=== PATIENT | female | born 1955 | race Caucasian/White ===

== ENCOUNTER 2019-09-04 12:53 | Emergency (ER) | payer BC ==
[2019-09-04 14:00] VITALS: BP 145/65
--- NOTE | 2019-09-04 15:10 | UC ---
Throat Pain/Nasal Dejan HPI - HPI Summary HPI Summary: 64-year-old woman comes in with chief complaint of upper respiratory tract infection symptoms for one week. She's been having rhinorrhea and postnasal drip cough. She does not feel like she has any chest congestion. The last day she is developed bilateral conjunctivitis with discharge and irritation of both of her eyes. This does not feel short of breath. - History of Current Complaint Chief Complaint: UCRespiratory Stated Complaint: EYE PROBLEM Time Seen by Provider: 09/04/19 14:52 Pain Intensity: 6 - Allergies/Home Medications Allergies/Adverse Reactions: Allergies Allergy/AdvReac Type Severity Reaction Status Date / Time No Known Allergies Allergy Verified 09/04/19 14:00 Home Medications: Home Medications Ibandronate Sodium [Boniva] 150 mg PO MONTHLY 09/04/19 [History Confirmed ] Multivitamins/Minerals TAB* [Thera M Plus TAB*] 1 tab PO DAILY 09/04/19 [ History Confirmed 09/04/19] PMH/Surg Hx/FS Hx/Imm Hx Previously Healthy: Yes - OSTEOPOROSIS - Surgical History Surgical History: None - Family History Known Family History: Positive: Non-Contributory - Social History Alcohol Use: Occasionally Substance Use Type: None Smoking Status (MU): Never Smoked Tobacco Review of Systems All Other Systems Reviewed And Are Negative: Yes Constitutional: Positive: Other - SEE HPI Skin: Positive: Negative Eyes: Positive: Drainage, Eye Redness ENT: Positive: Sore Throat, Nasal Discharge, Sinus Congestion Respiratory: Positive: Cough Cardiovascular: Positive: Negative Gastrointestinal: Positive: Negative Motor: Positive: Negative Neurovascular: Positive: Negative Musculoskeletal: Positive: Negative Neurological: Positive: Negative Psychological: Positive: Negative Is Patient Immunocompromised?: No Physical Exam Triage Information Reviewed: Yes Appearance: No Pain Distress, Well-Nourished, Ill-Appearing - MILD Vital Signs: Initial Vital Signs Temp 99.2 F 09/04/19 13:56 Pulse 74 09/04/19 13:56 Resp 16 09/04/19 13:56 BP 145/65 09/04/19 13:56 Pulse Ox 99 09/04/19 13:56 Vital Signs Reviewed: Yes Eyes: Positive: Conjunctiva Inflamed - B/L, Discharge - B/L ENT: Positive: Pharyngeal erythema, Nasal congestion, Nasal drainage, TMs normal Neck: Positive: Supple Respiratory: Positive: Lungs clear, Normal breath sounds, No respiratory distress Cardiovascular: Positive: RRR Musculoskeletal: Positive: Strength Intact, ROM Intact Neurological: Positive: Alert, Muscle Tone Normal Psychological: Positive: Normal Response To Family, Age Appropriate Behavior Skin Exam: Normal Throat Pain/Nasal Course/Dx - Course Course Of Treatment: DISCUSSED VIRAL VERSES BACTERIAL INFECTIONS AND THE ROLE OF ANTIBIOTICS. THE PATIENT PREFERS TO BE ON ANTIBIOTICS AT THIS TIME. - Differential Dx/Diagnosis Provider Diagnosis: Sinusitis, Conjunctivitis Discharge ED - Sign-Out/Discharge Documenting (check all that apply): Patient Departure All imaging exams completed and their final reports reviewed: No Studies - Discharge Plan Condition: Stable Disposition: HOME Prescriptions: Amoxicillin PO (*) [Amoxicillin 875 MG (*)] 875 mg PO BID #20 tab Tobramycin 0.3% OPHTH.[place]* 1 drop BOTH EYES Q4H #1 btl Patient Education Materials: Sinusitis (ED), Conjunctivitis (ED) Referrals: [facility] [Outside] Additional Instructions: FOLLOW UP WITH YOUR DOCTOR IF NOT COMPLETELY IMPROVED. GET REEVALUATED SOONER IF NOT IMPROVED OR WORSE OR ANY QUESTIONS OR CONCERNS. - Billing Disposition and Condition Condition: STABLE Disposition: Home
== END 2019-09-04 15:30 | disposition home or self-care (01) ==
LOC: UCEAST 12:53
DX: J32.9 Chronic sinusitis, unspecified (principal); H10.9 Unspecified conjunctivitis
CPT/HCPCS: 99202; G0463